=== PATIENT | female | born 1940 | race Caucasian/White ===

== ENCOUNTER 2017-09-04 14:27 | Inpatient (IN) | payer OTHER ==
[~2017-09-04] VITALS: Ht 162.6 cm; Wt 99.8 kg
[2017-09-04] MEDS ORDERED: DILTIAZEM HCL 25 MG/5 ML VIAL IV ONE (15:00)
[2017-09-04] MEDS ORDERED: SODIUM CHLORIDE 0.9% 1,000 ML IV ONE ×2 (15:08)
[2017-09-04 15:32] LABS: Urine Bacteria MOD /hpf (None Seen); Urine Blood 1+ /uL (Negative); Urine Mucus FEW (None Seen); Urine Specific Gravity 1.013 (1.001-1.035); Urine WBC 275 /hpf (0 - 5); Urine WBC Clumps PRESENT /hpf (None Seen)
[2017-09-04 15:59] LABS: Platelet Count (auto) 151 10^3/uL (140-450)
[2017-09-04 16:01] LABS: Hematocrit 25.7 % (36.0-46.0); Hemoglobin 8.5 g/dL (12.2-16.2); Mean Corpuscular Hemoglobin 28.8 pg (28.0-32.0); Mean Corpuscular Hgb Conc. 33.2 g/dL (32.0-36.0); Mean Corpuscular Volume 86.6 fL (80.0-100.0); Red Blood Cells 2.96 10^6/uL (4.0-5.20); Red Cell Distribution Width 19.7 % (11.8-14.3)
[2017-09-04 16:09] LABS: White Blood Cell 1.2 10^3/uL (4.4-10.8)
[2017-09-04 16:10] LABS: Band Neutrophils % (manual) 0; Basophils % (manual) 0 (0.0-2.0); Blast Cells 0; Metamyelocytes % 0; Myelocytes % 0; Promyelocytes % 0; Reactive Lymphocytes 0
[2017-09-04 16:17] LABS: Partial Thromboplastin Time 25.5 sec (23.78-33.04); Prothrombin Time 10.7 sec (9.27-12.13)
[2017-09-04] MEDS: SODIUM CHLORIDE 0.9% 1,000 ML IV SCH (16:17)
[2017-09-04 16:20] LABS: Alanine Aminotransferase 20 U/L (13-56); Albumin 2.6 g/dL (3.4-5.0); Anion Gap 13 (5-15); Aspartate Aminotransferase 11 U/L (15-37); BUN/Creatinine Ratio 12.2; Blood Urea Nitrogen 27 mg/dL (7-18); Calcium 7.9 mg/dL (8.5-10.1); Carbon Dioxide 22 mmol/L (21-32); Chloride 106 mmol/L (98-107); GFR African American 28 mL/min; GFR Non-African American 23 mL/min; Glucose 111 mg/dL (74-106); Potassium 3.7 mmol/L (3.5-5.1); Sodium 141 mmol/L (136-145)
[2017-09-04 16:25] LABS: Alkaline Phosphatase 58 U/L (45-117); Bilirubin, Total 1.3 mg/dL (0.2-1.0); Total Protein 6.5 g/dL (6.4-8.2)
[2017-09-04] MEDS ORDERED: LACTULOSE 20Gm/30ML SOLN PO PRN (16:30)
[2017-09-04] MEDS ORDERED: PANTOPRAZOLE 40 MG/10 ML VIAL IV ONE (16:30)
[2017-09-04] MEDS ORDERED: TEMAZEPAM 15 MG CAP PO PRN (16:30)
[2017-09-04] MEDS ORDERED: NITROGLYCERIN 0.4 MG SL TAB SL PRN (16:30)
[2017-09-04] MEDS ORDERED: HYDROcodone-ACET 5/325MG TAB PO PRN (16:30)
[2017-09-04] MEDS ORDERED: MORPHINE SULFATE 10 MG/ML INJ 1ML SDV IV PRN ×2 (16:30)
[2017-09-04] MEDS ORDERED: LORazepam 0.5 MG TAB PO PRN (16:30)
[2017-09-04] MEDS ORDERED: ACETAMINOPHEN 500 MG TAB PO PRN (16:30)
[2017-09-04] MEDS ORDERED: LEVOFLOXACIN 500MG 100 ML IV ONE (16:30)
[2017-09-04] MEDS: ENOXAPARIN SOD 30 MG/0.3 ML SYRINGE SC SCH (16:43)
[2017-09-04] MEDS: PROMETHAZINE HCL 25 MG/ML 1ML IV PRN ×2 (17:28→22:24)
[2017-09-04 18:19] LABS: Eosinophils % (manual) 1 (0-7); Lymphocytes % (manual) 55 (10.0-50.0); Monocytes % (manual) 35 (0-12)
[2017-09-04] MEDS: metroNIDAZOLE 500MG/100ML 100 ML IV SCH (18:49)
[2017-09-04] MEDS ORDERED: TBO FILGRASTIM 480 MCG/0.8 ML SC ONE (20:15)
[2017-09-04] MEDS ORDERED: METOPROLOL TARTRATE 1MG/1ML-5ML VIAL IV ONE ×2 (22:15→22:30)
[2017-09-04] MEDS ORDERED: ONDANSETRON HCL 4 MG/2 ML VIAL ONE (23:54)
[2017-09-05] MEDS: metroNIDAZOLE 500MG/100ML 100 ML IV SCH ×3 (00:10→12:00)
[2017-09-05] MEDS: SODIUM CHLORIDE 0.9% 1,000 ML IV SCH ×2 (00:10→12:17)
[2017-09-05] MEDS ORDERED: ONDANSETRON HCL 4 MG/2 ML VIAL IV ONE ×2 (00:15→06:30)
[2017-09-05] MEDS: PROMETHAZINE HCL 25 MG/ML 1ML IV PRN ×2 (03:19→07:36)
[2017-09-05 06:23] LABS: Hematocrit 22.8 % (36.0-46.0); Hemoglobin 7.7 g/dL (12.2-16.2); Mean Corpuscular Hemoglobin 29.1 pg (28.0-32.0); Mean Corpuscular Hgb Conc. 33.6 g/dL (32.0-36.0); Mean Corpuscular Volume 86.6 fL (80.0-100.0); Platelet Count (auto) 114 10^3/uL (140-450); Red Blood Cells 2.64 10^6/uL (4.0-5.20); Red Cell Distribution Width 19.6 % (11.8-14.3)
[2017-09-05] MEDS ORDERED: DIPHENOXYLATE W/ATROPINE 2.5 MG TAB PO ONE (06:30)
[2017-09-05 06:35] LABS: White Blood Cell 1.4 10^3/uL (4.4-10.8)
[2017-09-05 06:37] LABS: Basophils % (manual) 0 (0.0-2.0); Blast Cells 0; Eosinophils % (manual) 0 (0-7); Metamyelocytes % 0; Myelocytes % 0; Promyelocytes % 0
[2017-09-05 06:56] LABS: Albumin 2.2 g/dL (3.4-5.0); BUN/Creatinine Ratio 12.4; Calcium 7.7 mg/dL (8.5-10.1); Potassium 3.7 mmol/L (3.5-5.1); Total Protein 5.7 g/dL (6.4-8.2)
[2017-09-05 09:02] LABS: Band Neutrophils % (manual) 5; Lymphocytes % (manual) 47 (10.0-50.0); Monocytes % (manual) 21 (0-12); Reactive Lymphocytes 3
[2017-09-05] MEDS ORDERED: LEVOFLOXACIN 250MG 50 ML IV SCH (10:00)
[2017-09-05] MEDS ORDERED: PANTOPRAZOLE 40 MG/10 ML VIAL IV SCH (10:00)
[2017-09-05] MEDS: ENOXAPARIN SOD 30 MG/0.3 ML SYRINGE SC SCH (10:02)
[2017-09-05 11:48] LABS: Hematocrit 23.5 % (36.0-46.0); Hemoglobin 7.8 g/dL (12.2-16.2)
[2017-09-05 15:10] VITALS: BP 161/89
== END 2017-09-05 15:40 | disposition short-term general hospital (02) | DRG 393 ==
LOC: ER 14:27 → TELE 14:28
PROVIDERS: ADMIT Internal Medicine; ATTEND Internal Medicine Geriatric Medicine
DX: K52.1 Toxic gastroenteritis and colitis (principal); E43 Unspecified severe protein-calorie malnutrition; N17.0 Acute kidney failure with tubular necrosis; E86.0 Dehydration; C50.919 Malignant neoplasm of unspecified site of unspecified female breast; D70.9 Neutropenia, unspecified; N39.0 Urinary tract infection, site not specified; E66.9 Obesity, unspecified; I10 Essential (primary) hypertension; T45.1X5A Adverse effect of antineoplastic and immunosuppressive drugs, initial encounter; K42.9 Umbilical hernia without obstruction or gangrene; Z96.651 Presence of right artificial knee joint; K44.9 Diaphragmatic hernia without obstruction or gangrene; N89.8 Other specified noninflammatory disorders of vagina; Z90.49 Acquired absence of other specified parts of digestive tract; Z90.710 Acquired absence of both cervix and uterus; Z88.0 Allergy status to penicillin
CPT/HCPCS: 36415; 51702; 71045; 74176; 80053; 80061; 81001; 83605; 83880; 84484; 85007; 85014; 85018; 85027; 85610; 85652; 85730; 87040; 87086; 87088; 87186; 87493; 93005; 96361; 96365; 96375; C9113; J1447; J1956; J2405; J3490